=== PATIENT | male | born 1950 | race Caucasian/White ===

== ENCOUNTER 2024-08-12 09:47 | Day surgery (SDC) | payer OTHER, BC ==
[2024-08-05 16:31] VITALS: BMI 30.2
[2024-08-12] MEDS ORDERED: EPINEPHrine 1:1000 P/F - 1 MG/ML AMP ONE (10:01)
[2024-08-12] MEDS ORDERED: LIDOCAINE 1% P/F 10 MG/ML VIAL ONE (10:01)
[2024-08-12] MEDS ORDERED: CARBACHOL 0.01% INTRA-OCULAR 1.5 ML VIAL ONE (10:02)
[2024-08-12] MEDS ORDERED: BSS (NA/CA/MG/K) BALANCED SALT SOLUTION OPHTH SOLN 15 ML BOTTLE ONE (10:02)
[2024-08-12] MEDS ORDERED: TETRACAINE 0.5% OPHTH SOLN 2 ML BOTTLE ONE (10:02)
[2024-08-12] MEDS ORDERED: NEO/POLYMYX B SULF/DEXAMETH OPHTHALMIC 5ML BOTTLE ONE (10:02)
[2024-08-12] MEDS: CIPROFLOXACIN 0.3% EYE DROPS 5 ML BOTTLE ONE (10:20)
[2024-08-12] MEDS: TROPICAMIDE 1% 3 ML EYE DROPS ONE (10:20)
[2024-08-12] MEDS: PHENYLEPHRINE 2.5% OPTHALMIC DROP 2ML BOTTLE ONE (10:20)
[2024-08-12] MEDS: CYCLOPENTOLATE 2% OPHTH SOLN 2 ML BOTTLE ONE (10:20)
[2024-08-12 10:30] VITALS: RESP 18
[2024-08-12] MEDS ORDERED: ONDANSETRON 4 MG/2 ML VIAL ONE (13:07)
[2024-08-12] MEDS ORDERED: MIDAZOLAM HCL 2 MG/2 ML SINGLE DOSE VIAL ONE (13:07)
[2024-08-12] MEDS ORDERED: PHENYLEPHRINE/KETOROLAC 4 ML VIAL IO ONE (13:22)
[2024-08-12 14:28] VITALS: TEMP 97.8
[2024-08-12 14:29] VITALS: BP 149/79; PULSE 65
== END 2024-08-12 14:30 | disposition home or self-care (01) ==
LOC: FASU 09:47
PROVIDERS: ATTEND Ophthalmology
PROC: 08RJ3JZ Replacement of Right Lens with Synthetic Substitute, Percutaneous Approach (ICD-10-PCS; principal; 2024-08-12 13:31)
DX: H26.8 Other specified cataract (principal)
CPT/HCPCS: 66984; V2632; J1097

== ENCOUNTER 2024-09-02 09:58 | Day surgery (SDC) | payer OTHER, BC ==
[2024-08-28 13:39] VITALS: BMI 30.2
[2024-09-02] MEDS: CIPROFLOXACIN 0.3% EYE DROPS 5 ML BOTTLE ONE (10:45)
[2024-09-02] MEDS: CYCLOPENTOLATE 2% OPHTH SOLN 2 ML BOTTLE ONE (10:45)
[2024-09-02] MEDS: TROPICAMIDE 1% 3 ML EYE DROPS ONE (10:45)
[2024-09-02] MEDS: PHENYLEPHRINE 2.5% OPTHALMIC DROP 2ML BOTTLE ONE (10:45)
[2024-09-02] MEDS ORDERED: CARBACHOL 0.01% INTRA-OCULAR 1.5 ML VIAL ONE (10:53)
[2024-09-02] MEDS ORDERED: LIDOCAINE 1% P/F 10 MG/ML VIAL ONE (10:53)
[2024-09-02] MEDS ORDERED: TETRACAINE 0.5% OPHTH SOLN 2 ML BOTTLE ONE (10:53)
[2024-09-02] MEDS ORDERED: NEO/POLYMYX B SULF/DEXAMETH OPHTHALMIC 5ML BOTTLE ONE (10:53)
[2024-09-02] MEDS ORDERED: BSS (NA/CA/MG/K) BALANCED SALT SOLUTION OPHTH SOLN 15 ML BOTTLE ONE (10:53)
[2024-09-02] MEDS ORDERED: MIDAZOLAM HCL 2 MG/2 ML SINGLE DOSE VIAL ONE ×2 (11:43→12:45)
[2024-09-02] MEDS ORDERED: ACETYLCHOLINE 1:100 INTRA-OCUL 20 MG/2 ML KIT ONE (13:15)
[2024-09-02 14:29] VITALS: RESP 18; TEMP 98
[2024-09-02 15:37] VITALS: BP 136/89; PULSE 76
== END 2024-09-02 15:00 | disposition home or self-care (01) ==
LOC: FASU 09:58
PROVIDERS: ATTEND Ophthalmology
PROC: 08RK3JZ Replacement of Left Lens with Synthetic Substitute, Percutaneous Approach (ICD-10-PCS; principal; 2024-09-02 12:41)
DX: H26.8 Other specified cataract (principal)
CPT/HCPCS: 66984; 67010; V2632